=== PATIENT | female | born 1980 | race Caucasian/White ===

== ENCOUNTER 2016-06-29 21:37 | Emergency (ER) | payer SELFPAY ==
[2016-06-29 22:04] VITALS: BP 119/72; PULSE 89; RESP 18; TEMP 96.9; O2SAT 99
--- NOTE | 2016-06-29 22:19 | ED PDOC ---
Lower Extremity Pain/Injury Time Seen by Provider: 06/29/16 22:06 Chief Complaint (Nursing): Lower Extremity Problem/Injury Chief Complaint (Provider): Pain to feet Additional Complaint(s): Pt. states for the past month she's had b/l foot pain which she describes as feeling "cold" which radiates to both her calves. Pt. states she was initially seen by her PMD on Wednesday and was prescribed gabapentin and informed that pain is likely due to her DM. Pt. states she does not take insulin. Denies trauma, SOB, chest pain, hx of PE/DVT, hemoptysis. Past Medical History Reviewed: Historical Data, Nursing Documentation, Vital Signs Vital Signs: Last Vital Signs Temp 96.9 F L 06/29/16 22:01 Pulse 89 06/29/16 22:01 Resp 18 06/29/16 22:01 BP 119/72 06/29/16 22:01 Pulse Ox 99 06/29/16 22:01 - Family History Family History: States: No Known Family Hx - Home Medications Home Medications: Ambulatory Orders Medication Instructions Recorded Ibuprofen 600 mg PO Q6H PRN #15 tab 11/22/14 Tramadol HCl [Ultram] 50 mg PO BID PRN #30 tablet 06/30/16 - Allergies Allergies/Adverse Reactions: Allergies Allergy/AdvReac Type Severity Reaction Status Date / Time No Known Allergies Allergy Verified 11/22/14 00:48 Review of Systems ROS Statement: Except As Marked, All Systems Reviewed And Found Negative Musculoskeletal: Positive for: Leg Pain, Foot Pain Physical Exam - Physical Exam Appears: Positive for: Well, Non-toxic, No Acute Distress Skin: Positive for: Normal Color, Warm. Negative for: Rash Pulses-Dorsalis Pedis (L): 2+ Pulses-Dorsalis Pedis (R): 2+ Extremity: Positive for: Normal ROM, Capillary Refill (< 2 seconds of b/l lower extremities), Other (b/l feet without swelling, tenderness, warmth, erythema, or deformity). Negative for: Pedal Edema (b/l), Calf Tenderness (b/l) - ECG O2 Sat by Pulse Oximetry: 99 - Radiology X-Ray: Interpreted by Me (b/l foot x-ray) X-Ray Interpretation: No Acute Disease - Progress ED Course And Treament: FSBS: 125 Duplex b/l lower extremities: negative for DVT Disposition - Clinical Impression Clinical Impression: Diabetic neuropathy - Patient ED Disposition Is Patient to be Admitted: No - Disposition Disposition: Routine/Home Disposition Time: 00:05 Condition: STABLE Prescriptions: Tramadol HCl [Ultram] 50 mg PO BID PRN #30 tablet PRN Reason: Other Instructions: Diabetic Neuropathy (ED) Print Language: MALAY
--- NOTE | 2016-06-29 23:31 | US ---
EXAM: US Duplex Bilateral Lower Extremity Veins. CLINICAL HISTORY: 36 years old, female; Pain; Foot; Bilateral TECHNIQUE: Real-time ultrasound scan of the veins of the bilateral lower extremities with color Doppler flow, spectral waveform analysis and compression. COMPARISON: No relevant prior studies available. FINDINGS: Right deep veins: Normal color and spectral Doppler flow. Normal compressibility. No deep vein thrombosis from common femoral to popliteal vein. Right superficial veins: Unremarkable. Left deep veins: Normal color and spectral Doppler flow. Normal compressibility. No deep vein thrombosis from common femoral to popliteal vein. Left superficial veins: Unremarkable. Soft tissues: No popliteal cyst. IMPRESSION: 1. No evidence of DVT within the lower extremities. 2. Incidental/non-acute findings are described above.
--- NOTE | 2016-06-30 14:26 | RAD ---
Right foot radiographs Left foot radiographs Indication: Pain Comparison: None available Findings: Curvilinear lucency involving the proximal 4th left metatarsal favored to reflect artifact however recommend correlation with physical exam to exclude point tenderness. No acute displaced fracture or dislocation identified. Alignment appears satisfactory. Soft tissues appear unremarkable. No evidence of radiopaque foreign body. Impression: Curvilinear lucency involving the proximal 4th left metatarsal favored to reflect artifact from overlying 5th metatarsal rather than nondisplaced fracture however recommend correlation with physical exam to exclude point tenderness. Remainder the visualized osseous structures appear unremarkable. Study has been marked for PA review.
== END 2016-06-30 00:24 | disposition home or self-care (01) ==
LOC: H.ER 21:37
DX: E11.40 Type 2 diabetes mellitus with diabetic neuropathy, unspecified (principal)

== ENCOUNTER 2016-10-03 22:56 | Emergency (ER) | payer OTHER ==
[2016-10-03 23:11] VITALS: BP 103/61; PULSE 89; RESP 16; TEMP 98.7; O2SAT 100
--- NOTE | 2016-10-04 00:46 | ED PDOC ---
Lower Extremity Pain/Injury Time Seen by Provider: 10/03/16 23:50 Chief Complaint (Nursing): Lower Extremity Problem/Injury Chief Complaint (Provider): BILATERAL FEET PAIN History Per: Patient (36 Y/O FEMALE HERE WITH BILATERAL FOOT PAIN X YEAR PERSISTENT. PATIENT STATES PAIN IS BURNING SENSATION ON BASE OF FEET. HAS ADDITIONAL PAIN BILATERAL ARMS ONGOIG. IS ON GABAPENTIN AND TRAMADOL SINCE 2016. PATIENT RAN OUT OF TRAMADOL AND STATES GABAPENTIN IS NOT CONTROLLING PAIN TODAY.) Past Medical History Reviewed: Historical Data, Nursing Documentation, Vital Signs Vital Signs: Last Vital Signs Temp 98.7 F 10/03/16 23:07 Pulse 89 10/03/16 23:07 Resp 16 10/03/16 23:07 BP 103/61 10/03/16 23:07 Pulse Ox 100 10/03/16 23:07 - Family History Family History: States: No Known Family Hx - Home Medications Home Medications: Ambulatory Orders Medication Instructions Recorded Ibuprofen 600 mg PO Q6H PRN #15 tab 11/22/14 Tramadol HCl [Ultram] 50 mg PO BID PRN #30 tablet 06/30/16 traMADol [Ultram] 50 mg PO Q6 PRN #10 tab 10/04/16 - Allergies Allergies/Adverse Reactions: Allergies Allergy/AdvReac Type Severity Reaction Status Date / Time No Known Allergies Allergy Verified 10/04/16 00:18 Review of Systems ROS Statement: Except As Marked, All Systems Reviewed And Found Negative Physical Exam - Reviewed Nursing Documentation Reviewed: Yes Vital Signs Reviewed: Yes - Physical Exam Appears: Positive for: Well, Non-toxic, No Acute Distress Head Exam: Positive for: ATRAUMATIC, NORMAL INSPECTION, NORMOCEPHALIC Skin: Positive for: Normal Color, Warm, DRY Eye Exam: Positive for: EOMI, Normal appearance, PERRL ENT: Positive for: Normal ENT Inspection Neck: Positive for: Normal, Painless ROM Cardiovascular/Chest: Positive for: Regular Rate, Rhythm Respiratory: Positive for: CNT, Normal Breath Sounds Gastrointestinal/Abdominal: Positive for: Normal Exam, Bowel Sounds, Soft Back: Positive for: Normal Inspection Extremity: Positive for: Normal ROM Neurologic/Psych: Positive for: Alert, Oriented - ECG O2 Sat by Pulse Oximetry: 100 - Progress ED Course And Treament: bs: 116 TRAMADOL 50 MG X 1 DOSE Disposition - Clinical Impression Clinical Impression: Neuropathy - Patient ED Disposition Is Patient to be Admitted: No - Disposition Referrals: [facility] [Outside] John Frye MD [Medical Doctor] - Disposition: Routine/Home Disposition Time: 00:46 Condition: FAIR Prescriptions: traMADol [Ultram] 50 mg PO Q6 PRN #10 tab PRN Reason: Pain, Severe (8-10) Instructions: Diabetic Neuropathy (ED) Print Language: KINYARWANDA
== END 2016-10-04 01:22 | disposition home or self-care (01) ==
LOC: H.ER 22:56
DX: E11.40 Type 2 diabetes mellitus with diabetic neuropathy, unspecified (principal); G62.9 Polyneuropathy, unspecified

== ENCOUNTER 2016-12-04 19:58 | Emergency (ER) | payer OTHER ==
[2016-12-04 20:12] VITALS: BP 119/70; PULSE 93; RESP 17; TEMP 98; O2SAT 98
--- NOTE | 2016-12-04 20:48 | ED PDOC ---
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 Denies fever. Reports taking Ibuprofen for pain relief. When she blows her nose, patient has increased pain. No other medical complaints at this time. PMD: Giselle Candelaria Past Medical History Reviewed: Historical Data, Nursing Documentation, Vital Signs Vital Signs: Last Vital Signs Temp 98.0 F 12/04/16 20:09 Pulse 93 H 12/04/16 20:09 Resp 17 12/04/16 20:09 BP 119/70 12/04/16 20:09 Pulse Ox 98 12/04/16 20:09 - Medical History PMH: Diabetes - Family History Family History: States: Unknown Family Hx - Home Medications Home Medications: Ambulatory Orders Medication Instructions Recorded Ibuprofen 600 mg PO Q6H PRN #15 tab 11/22/14 Tramadol HCl [Ultram] 50 mg PO BID PRN #30 tablet 06/30/16 traMADol [Ultram] 50 mg PO Q6 PRN #10 tab 10/04/16 Guaifen/Phenyleph/Acetaminophn 1 tab PO BID #14 tab 12/04/16 [Mucinex Fast-Max Cold & Sinus 325 mg-200 mg-5] - Allergies Allergies/Adverse Reactions: Allergies Allergy/AdvReac Type Severity Reaction Status Date / Time No Known Allergies Allergy Verified 12/04/16 20:12 Review of Systems ROS Statement: Except As Marked, All Systems Reviewed And Found Negative Constitutional: Negative for: Fever ENT: Positive for: Nose Congestion, Other (Maxillary frontal sinus pain) Physical Exam - Reviewed Nursing Documentation Reviewed: Yes Vital Signs Reviewed: Yes - Physical Exam Appears: Positive for: Non-toxic, No Acute Distress Head Exam: Positive for: ATRAUMATIC, NORMAL INSPECTION, NORMOCEPHALIC Skin: Positive for: Normal Color, Warm, Dry Eye Exam: Positive for: EOMI, Normal appearance, PERRL ENT: Positive for: Nasal Congestion Neck: Positive for: Normal Neurologic/Psych: Positive for: Alert, Oriented - ECG O2 Sat by Pulse Oximetry: 98 (RA) Pulse Ox Interpretation: Normal Medical Decision Making Medical Decision Making: Time: 20:45 Clinical Impression: Sinus pressure Upon provider evaluation patient is medically stable, and requires no further treatment in the ED at this time. Patient will be discharged home with Rx for Mucinex. Counseling was provided and all questions were answered regarding diagnosis and need for follow up with PMD. There is agreement to discharge plan. Return if symptoms persist or worsen. Scribe Attestation: Documented by Nannette Raymundo, acting as a scribe for Sita Olsen PA-C Provider Scribe Attestation: All medical record entries made by the Scribe were at my direction and personally dictated by me. I have reviewed the chart and agree that the record accurately reflects my personal performance of the history, physical exam, medical decision making, and the department course for this patient. I have also personally directed, reviewed, and agree with the discharge instructions and disposition. Disposition - Clinical Impression Clinical Impression: Sinus pressure - Patient ED Disposition Is Patient to be Admitted: No Counseled Patient/Family Regarding: Diagnosis, Need For Followup, Rx Given - Disposition Disposition: Routine/Home Disposition Time: 20:45 Condition: STABLE Prescriptions: Guaifen/Phenyleph/Acetaminophn [Mucinex Fast-Max Cold & Sinus 325 mg-200 mg-5] 1 tab PO BID #14 tab Instructions: Sinusitis (ED) Forms: [employer] ([place]) Print Language: BHUTANESE
== END 2016-12-04 21:09 | disposition home or self-care (01) ==
LOC: H.ER 19:58
DX: R51 Headache (principal)